=== PATIENT | female | born 1990 | race American Indian/Alaskan Native ===

== ENCOUNTER 2020-08-04 17:14 | Emergency (ER) | payer SELFPAY ==
[2020-08-04 17:57] LABS: Amphetamine Screen,Urine Negative; Benzodiazepines Screen,Urine Negative; Cannabinoid Screen,Urine Negative; Cocaine Screen,Urine Negative; Methadone Screen,Urine Negative; Opiate Screen,Urine Negative
--- NOTE | 2020-08-04 17:57 | Emergency Department Report ---
ED Palpitations HPI - General Chief Complaint: Arrhythmia/Palpitations Stated Complaint: HEART RATE RACING Time Seen by Provider: 08/04/20 17:49 Source: patient Mode of arrival: Ambulatory Limitations: No Limitations - History of Present Illness Initial Comments: Patient is 30 years old female with history of panic attack. Patient presented to the ER complaining of sudden onset of palpitation after she finished eating at a restaurant. Patient stated that she started feeling her heart racing. She stated that she went out into her car to relax but he continue. Patient denied any chest pain however she reported some shortness of breath. She denied any recent leg swelling or recent travel. Patient also denied any fever or chills. MD Complaint: rapid heart beat, "heart racing", palpitations -: Sudden, minutes(s) Context: occured during rest Associated Symptoms: shortness of breath - Related Data Allergies Allergy/AdvReac Type Severity Reaction Status Date / Time No Known Allergies Allergy Verified 08/04/20 17:20 ED Review of Systems ROS: Stated complaint: HEART RATE RACING Other details as noted in HPI Comment: All other systems reviewed and negative Constitutional: denies: chills, fever Respiratory: shortness of breath. denies: cough, orthopnea, SOB with exertion, SOB at rest, wheezing Cardiovascular: palpitations. denies: chest pain, dyspnea on exertion Gastrointestinal: denies: abdominal pain, nausea, vomiting Musculoskeletal: denies: back pain Neurological: denies: headache, weakness Psychiatric: anxiety. denies: auditory hallucinations, visual hallucinations, homicidal thoughts, suicidal thoughts ED Past Medical Hx - Past Medical History Previous Medical History?: No - Surgical History Past Surgical History?: No - Social History Smoking Status: Never Smoker Substance Use Type: None ED Physical Exam - General Limitations: No Limitations General appearance: alert, in no apparent distress, anxious - Head Head exam: Present: atraumatic, normocephalic, normal inspection - Eye Eye exam: Present: normal appearance, PERRL - ENT ENT exam: Present: normal exam, normal orophraynx, mucous membranes moist - Neck Neck exam: Present: normal inspection, full ROM. Absent: tenderness, meningismus - Respiratory Respiratory exam: Present: normal lung sounds bilaterally - Cardiovascular Cardiovascular Exam: Present: tachycardia. Absent: systolic murmur, diastolic murmur, rubs - GI/Abdominal GI/Abdominal exam: Present: soft, normal bowel sounds. Absent: distended, tenderness, guarding, rebound, rigid, organomegaly, mass, bruit, pulsatile mass, hernia - Extremities Exam Extremities exam: Present: normal inspection, full ROM, normal capillary refill. Absent: tenderness - Back Exam Back exam: Present: normal inspection, full ROM. Absent: CVA tenderness (R), CVA tenderness (L) - Neurological Exam Neurological exam: Present: alert, oriented X3, CN II-XII intact, normal gait, reflexes normal. Absent: motor sensory deficit - Psychiatric Psychiatric exam: Present: normal mood, anxious. Absent: depressed, homicidal ideation, suicidal ideation - Skin Skin exam: Present: warm, intact, normal color ED Course Vital Signs 08/04/20 08/04/20 08/04/20 17:18 17:22 18:00 Temperature 98.1 F Pulse Rate 200 H 102 H 102 H Respiratory 16 18 Rate Blood Pressure 101/65 119/78 O2 Sat by Pulse 100 97 Oximetry 08/04/20 08/04/20 08/04/20 18:30 18:46 19:00 Temperature Pulse Rate 101 H 99 H 101 H Respiratory 21 19 16 Rate Blood Pressure 114/72 112/70 108/75 O2 Sat by Pulse 99 99 99 Oximetry ED Medical Decision Making - Lab Data Result diagrams: 08/04/20 17:38 08/04/20 17:38 - EKG Data -: EKG Interpreted by Nh EKG shows normal: sinus rhythm Rate: normal - EKG Data Interpretation: no acute changes - Radiology Data Radiology results: report reviewed - Medical Decision Making Patient is 30 years old female with history of panic attack. Patient presented to the ER complaining of sudden onset of palpitation after she finished eating at a restaurant. Patient stated that she started feeling her heart racing. She stated that she went out into her car to relax but he continue. Patient denied any chest pain however she reported some shortness of breath. She denied any recent leg swelling or recent travel. Patient also denied any fever or chills. EKG showed sinus rhythm with no ST elevation or depression. Patient received normal saline. Labs reviewed and showed elevated D-dimer however CTA chest is negative for PE. Labs otherwise are unremarkable including a negative troponin. Patient stated that she is feeling much better. Patient advised to follow-up with her primary doctor in the next 2 to 3 days and to return to the ER if she develop any new symptoms. Critical care attestation.: If time is entered above; I have spent that time in minutes in the direct care of this critically ill patient, excluding procedure time. ED Disposition Clinical Impression: Palpitation, Shortness of breath Disposition: DC-01 TO HOME OR SELFCARE Is pt being admited?: No Condition: Stable Instructions: Shortness of Breath, Adult, [id number], Palpitations, Easy-to- Read Referrals: PRIMARY CARE, [Primary Care Provider] - 3-5 Days
[2020-08-04 18:08] LABS: Basophils # (Auto) 0.1 K/mm3 (0.0-0.1); Basophils % (Auto) 0.9 % (0.0-1.8); Eosinophils % (Auto) 0.1 % (0.0-4.3); Hematocrit 36.4 % (30.3-42.9); Lymphocytes # (Auto) 1.1 K/mm3 (1.2-5.4); Mean Corpuscular HGB Conc 33 % (30-34); Mean Corpuscular Volume 79 fl (79-97); Monocytes # (Auto) 0.5 K/mm3 (0.0-0.8); Monocytes % (Auto) 7.7 % (0.0-7.3); Platelet Count 390 K/mm3 (140-440); Red Blood Count 4.62 M/mm3 (3.65-5.03); Red Cell Distribution Width 14.1 % (13.2-15.2)
[2020-08-04 18:13] LABS: Bacteria,Urine 1+ /HPF (Negative); Bilirubin,Urine NEG (Negative); Blood,Urine SM (Negative); Color,Urine Straw (Yellow); Protein,Urine <15 mg/dL mg/dL (Negative); Urobilinogen,Urine < 2.0 mg/dL (<2.0); WBC,Urine < 1.0 /HPF (0.0-6.0)
[2020-08-04 18:14] LABS: Alanine Aminotransferase 15 units/L (7-56); Albumin 4.5 g/dL (3.9-5); BUN/Creatinine Ratio 4; Blood Urea Nitrogen 4 mg/dL (7-17); Calcium 8.9 mg/dL (8.4-10.2); Hemolysis Index 3
[2020-08-04] MEDS ORDERED: SODIUM CHLORIDE 0.9% 1000 ML 1,000 ML IV ONE (19:38)
--- NOTE | 2020-08-04 20:02 | Cat Scan Report ---
CTA CHEST WITH IV CONTRAST INDICATION / CLINICAL INFORMATION: CHEST PAIN WITH ELEVATED D-DIMER. TECHNIQUE: Axial CT images were obtained through the chest after injection of 100 cc Omnipaque 350 milligrams pe rcent IV contrast. 3 plane MIP and/or 3D reconstructions were produced. All CT scans at this location are performed using CT dose reduction for ALARA by means of automated exposure control. COMPARISON: None available. FINDINGS: PULMONARY ARTERIES: No pulmonary emboli. THORACIC AORTA: No significant abnormality. HEART: No significant abnormality. CORONARY ARTERIES: No significant calcification. PLEURA: No pleural effusion. No pneumothorax. LYMPH NODES: No significant adenopathy. LUNGS: No acute air space or interstitial disease. ADDITIONAL FINDINGS: None. UPPER ABDOMEN: No acute findings. SKELETAL STRUCTURES: No significant osseous abnormality. IMPRESSION: 1. No CT evidence for pulmonary embolism. 2. No acute findings. Signer Name: Dalton Cunningham MD Signed: 08/04/2020 7:58 PM Workstation Name: [id number]
[2020-08-04 21:36] VITALS: BP 121/79
--- NOTE | 2020-08-05 14:02 | Electrocardiograph Report ---
[facility] Test Date: 2020-08-04 Test Time: 17:21:04 Pat Name: GONZALO ALAS Department: Room: Gender: F Scale Adjuster: KISHAN : 1990 Requested By: LORI LOWRY Order Number: [id number] Reading MD: Sammy Munoz Measurements Intervals Gardner Rate: 99 P: 51 MD: 146 QRS: 54 QRSD: 70 T: 26 QT: 316 QTc: 407 Interpretive Statements Sinus rhythm Probable left atrial enlargement No previous ECG available for comparison Electronically Signed On 08-05-2020 11:01:51 PDT by Sammy Munoz
== END 2020-08-04 21:37 | disposition home or self-care (01) ==
LOC: ED 17:14
DX: R00.2 Palpitations (principal); R06.02 Shortness of breath
CPT/HCPCS: 36415; 71275; 80053; 80307; 81001; 82550; 83735; 84484; 84703; 85025; 85379; 93005; 96360; 99284; J7030; Q9967